=== PATIENT | female | born 1990 | race Caucasian/White ===

== ENCOUNTER 2020-12-24 04:01 | Inpatient (IN) | payer OTHER ==
[~2020-12-24] VITALS: Ht 172.7 cm; Wt 93.0 kg
--- NOTE | 2020-12-26 07:55 | PR ---
[facility] [address] [facility] [place], [place] [address] Signed PP Progress Notes Datetime Report Generated by WADE: 12/26/2020 07:55 SUBJECTIVE: [id number] Pain: Within Normal Limits Nausea/Vomiting: Denies Flatus: No Bowel Movement: No Vital Signs: [id number] Vital Signs: Reviewed; Within Normal Limits Cardiovascular: Normal Respiratory: Normal Abdomen/Uterus: Normal Lochia: Normal Breasts: Normal Extremities: Normal Progress: Normal Exam Comments: NAD RRR No dyspnea Abd SNTND FFBU Ext neg Lavern's BL, no edema IMPRESSION/PLAN/PROCEDURES: [id number] Impression: Normal Progression Plan: Continue Present Management; Discharge Procedures: None Progress Notes: PPD#2 s/p precipitous Insufficient GBS prophylaxis - baby has now been monitored x 48 hrs Maternal blood type O neg, baby O pos - s/p rhogam x 1 vial well, progressing very well , would like to go home today Anticipate DC to home today Undecided re: contraception Outpatient follow-up - telephone visit in 2 weeks, in person in 6 weeks Signing Physician: Hardy Laguerre DO Copies: *Electronically Signed* 12/26/20 0755 HARDY LAGUERRE DO PATIENT NAME: CRISTINA ORDONEZ PROGRESS NOTE DATE OF : 89 PHYSICIAN: HARDY LAGUERRE DO RPT #: [id number] REPORT IS CONFIDENTIAL AND NOT TO BE RELEASED WITHOUT AUTHORIZATION [facility] [address] [place], [place] [address] Signed ~ *Electronically Signed* 12/26/20 0755 HARDY LAGUERRE DO PATIENT NAME: CRISTINA ORDONEZ PROGRESS NOTE DATE OF : 92 PHYSICIAN: HARDY LAGUERRE DO RPT #: [id number] REPORT IS CONFIDENTIAL AND NOT TO BE RELEASED WITHOUT AUTHORIZATION
== END 2020-12-26 10:30 | disposition home or self-care (01) | DRG 807 ==
LOC: FBCO 04:01 → FBC 04:14
PROVIDERS: ADMIT Obstetrics & Gynecology; ATTEND Obstetrics & Gynecology
PROC: 10E0XZZ Delivery of Products of Conception, External Approach (ICD-10-PCS; principal; 2020-12-25)
PROC: 10907ZC Drainage of Amniotic Fluid, Therapeutic from Products of Conception, Via Natural or Artificial Opening (ICD-10-PCS; 2020-12-25)
PROC: 0HQ9XZZ Repair Perineum Skin, External Approach (ICD-10-PCS; 2020-12-25)
DX: O62.3 Precipitate labor (principal); Z37.0 Single live birth; O99.824 Streptococcus B carrier state complicating childbirth; Z3A.39 39 weeks gestation of pregnancy; O70.0 First degree perineal laceration during delivery; Z67.41 Type O blood, Rh negative; Z88.0 Allergy status to penicillin
CPT/HCPCS: 83030; 85027; 86850; 86900; 86901; J0690; J2001; J2790; U0003